=== PATIENT | female | born 2000 | race American Indian/Alaskan Native ===

== ENCOUNTER 2022-09-27 21:22 | Inpatient (IN) | payer BC, OTHER ==
[~2022-09-27] VITALS: Ht 165.1 cm; Wt 123.0 kg
[2022-09-27] MEDS ORDERED: LEXA1TAB PO (22:59)
[2022-09-28] MEDS ORDERED: LEXA1TAB PO (00:52)
[2022-09-28] MEDS ORDERED: HOME MED LIST COMPLETE! XX SCH (00:55)
[2022-09-28] MEDS ORDERED: IBUPROFEN 400MG TAB PO PRN (06:35)
[2022-09-28] MEDS ORDERED: diphenhydrAMINE 25MG CAP PO PRN (06:35)
[2022-09-28] MEDS ORDERED: traZODone 50 MG TAB PO PRN (06:35)
[2022-09-28] MEDS ORDERED: MOM 30ML SUSPENSION UDC PO PRN (06:35)
[2022-09-28] MEDS ORDERED: ACETAMINOPHEN TAB 650MG DOSE (2X325MG) PO PRN (06:35)
[2022-09-28] MEDS ORDERED: MAALOX 30 ML SUSP *UDC PO PRN (06:35)
[2022-09-28] MEDS ORDERED: NICOTINE 21MG/24HR 1 EA TRANSDERMAL TD SCH (09:00)
[2022-09-28 09:21] VITALS: BP 132/90
[2022-09-28] MEDS: ESCITALOPRAM OXALATE 10 MG TAB (LEXAPRO) PO SCH (10:26)
[2022-09-28] MEDS ORDERED: LORazepam 2 MG TAB PO PRN (11:00)
[2022-09-28 11:02] VITALS: BP 130/88
[2022-09-28 11:06] VITALS: BP 130/88
[2022-09-28] MEDS ORDERED: NICOTINE 21MG/24HR 1 EA TRANSDERMAL TD PRN (11:55)
[2022-09-28] MEDS: NALTREXONE 50 MG TAB PO SCH (12:25)
[2022-09-28] MEDS: MULTIVITAMINS/MINERALS THERAP 1 TAB PO SCH (14:29)
[2022-09-28] MEDS: THIAMINE 100 MG TAB PO SCH ×2 (14:30→21:23)
[2022-09-28] MEDS: FOLIC ACID 1MG TAB PO SCH (14:30)
[2022-09-28 16:23] VITALS: BP 121/57
[2022-09-28 20:00] VITALS: BP 121/57
[2022-09-29 05:31] VITALS: BP 121/57
[2022-09-29 06:44] VITALS: BP 110/60
[2022-09-29] MEDS: NALTREXONE 50 MG TAB PO SCH (09:48)
[2022-09-29] MEDS: FOLIC ACID 1MG TAB PO SCH (09:48)
[2022-09-29] MEDS: THIAMINE 100 MG TAB PO SCH ×2 (09:48→21:40)
[2022-09-29] MEDS: ESCITALOPRAM OXALATE 10 MG TAB (LEXAPRO) PO SCH (09:48)
[2022-09-29] MEDS: MULTIVITAMINS/MINERALS THERAP 1 TAB PO SCH (09:48)
[2022-09-29 14:23] VITALS: BP 118/58
[2022-09-29 14:29] VITALS: BP 118/58
[2022-09-29 15:18] LABS: BASO % 0.3 % (0.0-1.0); EOS # 0.1 10^3/uL (0.0-0.5); EOS % 1.1 % (0.0-3.0); HEMATOCRIT 42.9 % (36.0-47.0); HEMOGLOBIN 13.6 g/dl (12.0-15.5); LYMPH # 1.6 10^3/uL (1.5-5.0); LYMPH % 13.6 % (24.0-44.0); MEAN CORPUSCULAR HEMOGLOBIN 26.7 pg (27.0-33.0); MEAN CORPUSCULAR HGB CONC 31.7 g/dl (32.0-36.5); MEAN CORPUSCULAR VOLUME 84.3 fl (80.0-96.0); MONO # 0.6 10^3/uL (0.0-0.8); MONO % 5.2 % (2.0-8.0); NEUTROPHILS # 9.1 10^3/uL (1.5-8.5); NEUTROPHILS % 79.4 % (36.0-66.0); PLATELET COUNT, AUTOMATED 289 10^3/uL (150-450); RED BLOOD COUNT 5.09 10^6/uL (4.00-5.40); WHITE BLOOD COUNT 11.5 10^3/uL (4.0-10.0)
[2022-09-29 15:41] LABS: ALBUMIN 4.1 G/DL (3.2-5.2); ALKALINE PHOSPHATASE 69 U/L (46-116); ALT/SGPT 117 U/L (7.0-40); AST/SGOT 49 U/L (<34); BILIRUBIN,TOTAL 0.4 MG/DL (0.3-1.2); BLOOD UREA NITROGEN 11 MG/DL (9-23); CALCIUM LEVEL 9.2 MG/DL (8.5-10.1); CARBON DIOXIDE LEVEL 27 MMOL/L (20-31); CHLORIDE LEVEL 105 MMOL/L (98-107); GLOMERULAR FILTRATION RATE > 60.0 (>60); GLUCOSE, FASTING 91 MG/DL (60-100); POTASSIUM SERUM 4.6 MMOL/L (3.5-5.1); SODIUM LEVEL 139 MMOL/L (136-145); TOTAL PROTEIN 7.2 G/DL (5.7-8.2)
[2022-09-29 16:01] LABS: HEPATITIS B SURFACE ANTIGEN NEGATIVE (NEGATIVE)
[2022-09-29 16:22] LABS: HEPATITIS C VIRUS ABY INDEX 0.1 INDEX (<0.8)
[2022-09-29 16:23] LABS: HEPATITIS B CORE ANTIBODY IGM NEGATIVE (NEGATIVE)
[2022-09-30 06:00] VITALS: BP 109/59
[2022-09-30 06:43] VITALS: BP 109/59
[2022-09-30] MEDS ORDERED: NALT50TA4 PO (08:42)
[2022-09-30] MEDS ORDERED: LEXA1TAB PO (08:42)
[2022-09-30] MEDS ORDERED: NICO21PAT TD (08:42)
[2022-09-30] MEDS: NALTREXONE 50 MG TAB PO SCH (08:56)
[2022-09-30] MEDS: ESCITALOPRAM OXALATE 10 MG TAB (LEXAPRO) PO SCH (08:56)
[2022-09-30] MEDS: FOLIC ACID 1MG TAB PO SCH (08:56)
[2022-09-30] MEDS: MULTIVITAMINS/MINERALS THERAP 1 TAB PO SCH (08:56)
[2022-09-30] MEDS: THIAMINE 100 MG TAB PO SCH (08:57)
== END 2022-09-30 12:08 | disposition home or self-care (01) | DRG 753 ==
LOC: M ED 21:22 → M ED INP 09-28 06:34 → M PSY 09-28 09:21
PROVIDERS: ADMIT Student in an Organized Health Care Education/Training Program; ATTEND Student in an Organized Health Care Education/Training Program
DX: F32.89 Other specified depressive episodes (principal); F17.210 Nicotine dependence, cigarettes, uncomplicated; F60.89 Other specific personality disorders; F10.20 Alcohol dependence, uncomplicated; F43.9 Reaction to severe stress, unspecified; R45.851 Suicidal ideations; F17.290 Nicotine dependence, other tobacco product, uncomplicated; Z62.810 Personal history of physical and sexual abuse in childhood; Z79.899 Other long term (current) drug therapy; Z56.6 Other physical and mental strain related to work; Z63.0 Problems in relationship with spouse or partner